=== PATIENT | male | born 1990 | race Caucasian/White ===

== ENCOUNTER 2021-03-08 15:26 | Emergency (ER) | payer OTHER, SELFPAY ==
[2021-03-08 16:02] VITALS: BP 133/82; PULSE 95; RESP 18; TEMP 36.7; O2SAT 98; BMI 27.4
--- NOTE | 2021-03-08 17:48 | ED_ITS ---
HPI - General Adult General: Chief complaint: Alcohol Stated complaint: POSS STD/DRUG WITHDRAWALS Time Seen by Provider: 03/08/21 17:28 History of Present Illness: HPI narrative: Patient is a 30-year-old male with history of alcohol dependence who presents the emergency room for evaluation of jitteriness after stopped taking alcohol for 5 days. Patient is company by her on and is very motivated to quit alcohol today. Patient tells me the last time he drank was 5 days ago. He has not had any withdrawal seizures. He reports generalized anxiety and jitteriness. Patient asked for medication for that. In addition, patient says that he would like to obtain urine drug screen as well as a herpes PCR at this time. Denies any urinary symptoms or penile lesions or rash at this time. No other focal complaints. Onset:chronic Duration:ongoing Location:home Severity:moderate Review of Systems Narrative: Constitutional: No fever, no chills. HEENT: No vision changes CV: No chest pain, no palpitations PULM: no cough, no dyspnea. GI: No abdominal pain, no N/V/D. : No dysuria MSKEL: No muscle pain SKIN: No new rashes, no lesions. NEURO: No headache, no focal weakness. HEME: No visible bruises PSYCH: Normal mood Physical Exam Narrative: EXAM NARRATIVE: Head: Atraumatic Eyes: PERRL, conjunctiva without injection ENT: Mucous membrane moist NECK: Supple, ROM intact LUNGS: LCTAB, no crackles/rhonchi CV: RRR ABDOMEN: Soft, nontender in all quadrants EXTREMITY: Normal ROM SKIN: No rash or erythema NEURO: Awake and alert, no focal motor deficits PSYCH: Normal mood and affect : No visible lesions or discharge. Normal external genitalia, Testicles non- tender b/l, no erythema. Course Vital Signs: Vital signs: Vital Signs Temperature 98.1 F 03/08/21 16:02 Pulse Rate 87 03/08/21 18:49 Respiratory Rate 18 03/08/21 18:49 Blood Pressure 148/96 03/08/21 18:49 Pulse Oximetry 99 03/08/21 18:49 MDM - General Adult MDM Narrative: Medical decision making narrative: 30-year-old male with history of chronic alcohol dependence who presents emergency room for concerns of mild withdrawal symptoms. On exam, patient is HDS heart rate of 105 on arrival. Patient has not had any history of withdrawal. No suspicion for underlying sepsis or other etiology for tachycardia. Patient has no asterixis at this time. Denies any visual hallucination. Patient received Librium in the emergency room. Request for urine drug screen herpes PCR. Disposition: Discharge. Patient is given strict precautions for any signs worsening symptoms of alcohol withdrawal. Patient is also given instruction strict instructions not drive today. Lab Data: Labs: Lab Results 03/08/21 Range/Units 18:05 Urine Opiates Scre en Negative (Negative) ng/mL Ur Barbiturates Sc reen Negative (Negative) ng/mL Ur Phencyclidine S crn Negative (Negative) ng/mL Ur Amphetamines Sc reen Negative (Negative) ng/mL U Benzodiazepines Scrn Negative (Negative) ng/mL Urine Cocaine Scre en Negative (Negative) ng/mL U Marijuana (THC) Screen Positive H (Negative) ng/mL Discharge Plan Discharge Patient Disposition: Home Clinical Impression: Alcohol withdrawal Condition: Stable Discharge Orders: Discharge ED (Routine); Ordered 03/08/21 Ordered By: Arnold Monique Discharge Diet: Advance as tolerated Discharge Activity: Resume usual activity Patient Instructions: Abuse of Alcohol (ED) Activity Restrictions/Additional Instructions: Please call us back if you have any questions. Remember that we have given you a sedating medicine, please do not drink alcohol. Please follow-up with your local community to see if there is any other things he can do to help you with your alcohol dependence. Coding Level of Care Code ED [employer] Repairer for Henrik Powers
[2021-03-08] MEDS: chlordiazePOXIDE 25 mg Capsule 50 MG PO (18:10)
[2021-03-08 18:36] LABS: Amphetamines Screen Urine Negative (Negative); Barbiturates Screen Urine Negative (Negative); Benzodiazepines Screen Urine Negative (Negative); Cocaine Screen Urine Negative (Negative); Opiate Screen Urine Negative (Negative); PCP Screen Urine Negative (Negative); THC Screen Urine Positive (Negative)
[2021-03-08 18:49] VITALS: BP 148/96; PULSE 87; RESP 18; O2SAT 99
[2021-03-14 18:06] LABS: HSV 1 DNA NOT DETECTED; HSV 2 DNA NOT DETECTED; HSV Source SERUM
== END 2021-03-08 18:51 | disposition home or self-care (01) ==
PROVIDERS: Emergency Provider Emergency Medicine
DX: F10.239 Alcohol dependence with withdrawal, unspecified (principal)
CPT/HCPCS: 80306; 87530; 99283